=== PATIENT | female | born 1950 | race Caucasian/White ===

== ENCOUNTER → 2018-03-25 | Outpatient (CLI) | payer MEDICARE, OTHER ==
[~2018-03-25] MED LIST: METOPROLOL TARTRATE 25 MG TAB ONE; METOPROLOL TARTRATE INJ 1 MG/ML VIAL ONE; NITROGLYCERIN 0.4 MG SUBL ONE
[2018-03-25 09:57] LABS: BLOOD UREA NITROGEN 16 mg/dL (7-26); BUN/CREATININE RATIO 24 (6-25); CREATININE, SERUM 0.67 mg/dL (0.57-1.11); EST GLOMERULAR FILTRATION RATE > 60 ML/MIN (60-)
--- NOTE | 2018-03-25 14:57 | Diagnostic Imaging Report ---
EXAM: CTA HEART WITH CONTRAST DATE: 03/25/2018 9:12 AM INDICATION: Coronary artery disease. Angina. COMPARISON: None TECHNIQUE: Contrast-enhanced CT of the coronary arteries was obtained with retrospective electrocardiogram gating. Images were reformatted at 0.5 mm intervals and sent to the [employer] workstation for interpretation of both systolic and diastolic phases. Lopressor 50 mg by mouth given twice as well as 5 mg IV given twice. 0.4 mg nitroglycerin. Heart rate during CTA reported as 68. Contrast: 100 mL Omnipaque 350 Total DLP: 1622 mGy*cm Est. Eff. Dose DLP x 0.015 x size factor mSv (CTDIvol has been reviewed and is below limits set by [facility]). Appropriate CT dose reduction techniques were utilized. Study quality: Image quality moderately degraded by motion. In particular, RCA in adequately evaluated. FINDINGS: Coronary Arteries: Coronary artery score disease limited by motion): LAD 223, circumflex 160, RCA 178 for a total of 562. This patient has a right dominant system, with normal origins of the coronary arteries. Left Main coronary artery: No atherosclerotic disease or significant stenosis. Left anterior descending artery: Moderate atherosclerotic changes mid LAD. Degree of narrowing in adequately evaluated. Diagonal branches: Moderate atherosclerotic changes first diagonal branch. Degree of narrowing in adequately evaluated. Left circumflex artery: Moderate atherosclerotic changes proximal circumflex. Degree of narrowing in adequately evaluated. Obtuse marginal branches: Inadequately evaluated. Right coronary artery: Nondiagnostic evaluation. Significant motion artifact all sequences. Mild to moderate proximal/mid atherosclerotic changes, suboptimally evaluated. PDA: No atherosclerotic disease or significant stenosis. Ramus intermedius: Absent Cardiac findings: Pacemaker: None. Artificial valve: None. Intracardiac?closure device: None Ascending Aorta: 34 mm. Pulmonary Trunk: 23 mm. Partially Visualized Mediastinum: Calcified mediastinal/hilar lymph nodes. Partially Visualized Lungs: No acute findings. Other findings: None IMPRESSION: 1. Exam of limited diagnostic utility due to moderate motion artifact. 2. Moderate atherosclerotic changes predominantly in the proximal/mid LAD, first diagonal branch, circumflex coronary artery, and RCA. Coronary calcium score of 562. Nuclear medicine stress test or coronary artery catheterization could be obtained for further evaluation. 3. Evidence of prior granulomatous disease. CT Calcium Score and Agatston Score Risk Group Distribution: 0: Negative Risk 1-10: Minimal Risk 11-100: Mild Risk 101-400: Moderate Risk >400: Extensive Risk Signed by: Dr. Ozzy Cotton MD on 03/25/2018 2:53 PM
== END ==
LOC: CT 09:04
PROVIDERS: ATTEND Internal Medicine Interventional Cardiology
DX: I25.10 Atherosclerotic heart disease of native coronary artery without angina pectoris (principal); I20.9 Angina pectoris, unspecified
CPT/HCPCS: 36415; 75574; 82565; 84520

== ENCOUNTER → 2019-05-26 | Day surgery (SDC) | payer MEDICARE, OTHER ==
[2019-05-21 14:22] LABS: BASOPHILS # (AUTO) 0.1 (0.0-0.1); BASOPHILS % 0.5 % (0.0-1.0); EOSINOPHILS # (AUTO) 0.2 (0.0-0.4); EOSINOPHILS % 1.6 % (0.0-6.0); HEMATOCRIT 45.3 % (34.2-44.1); HEMOGLOBIN 15.6 g/dL (12.0-16.0); LYMPHOCYTES # (AUTO) 2.8 (1.0-3.2); MEAN CORPUSCULAR HEMOGLOBIN 33.8 pg (28-32); MEAN CORPUSCULAR HGB CONC 34.4 g/dL (31-35); MEAN CORPUSCULAR VOLUME 98.1 fL (81-99); MONOCYTES # (AUTO) 0.9 (0.2-0.8); MONOCYTES % 9.6 % (4.4-11.3); NEUTROPHILS # (AUTO) 5.3 (2.1-6.9); NEUTROPHILS % 57.5 % (38.7-80.0); PLATELET COUNT 209 x10e3/uL (140-360); RED BLOOD COUNT 4.62 x10e6/uL (3.6-5.1); RED CELL DISTRIBUTION WIDTH 12.1 % (11.7-14.4)
[2019-05-21 14:39] LABS: BLOOD UREA NITROGEN 14 mg/dL (7-26); BUN/CREATININE RATIO 21 (6-25); CALCIUM 9.9 mg/dL (8.4-10.2); CARBON DIOXIDE 27 mmol/L (22-29); CHLORIDE 101 mmol/L (98-107); CREATININE, SERUM 0.67 mg/dL (0.57-1.11); EST GLOMERULAR FILTRATION RATE > 60 ML/MIN (60-); GLUCOSE 99 mg/dL (74-118); SODIUM 137 mmol/L (136-145)
--- NOTE | 2019-05-21 14:47 | Diagnostic Imaging Report ---
EXAMINATION: CHEST 2 VIEWS INDICATION: Preop. Colonoscopy ^PREOP ^[id number] ^1430 COMPARISON: August 13, 2016 FINDINGS: TUBES and LINES: None. LUNGS: Lungs are well inflated. Lungs are clear. There is no evidence of pneumonia or pulmonary edema. PLEURA: No pleural effusion or pneumothorax. HEART AND MEDIASTINUM: The cardiomediastinal silhouette is unremarkable. BONES AND SOFT TISSUES: No acute osseous lesion. Soft tissues are unremarkable. UPPER ABDOMEN: No free air under the diaphragm. IMPRESSION: No acute thoracic abnormality. Signed by: Dr. Dustin Henderson M.D. on 05/21/2019 2:43 PM
[~2019-05-26] MED LIST changes: +ASPIR 8181 MG PO; +AVAPRO150 MG PO; +CBD OIL SL; +CEFAZOLIN SOD 1 GM VIAL ONE; +FENTANYL CITRATE/PF 100MCG/2 ML INJ ONE; +IBUPROFEN200 MG PO; +KETAMINE HCL INJ 50 MG/ML 10 ML VIAL ONE; +LIDOCAINE HCL 2% LOCAL INJ 5 ML SDV VIAL INJ ONE; -METOPROLOL TARTRATE 25 MG TAB ONE; -METOPROLOL TARTRATE INJ 1 MG/ML VIAL ONE; +MIDAZOLAM HCL 2 MG/2 ML VIAL ONE; -NITROGLYCERIN 0.4 MG SUBL ONE; +PROPOFOL IV EMULSION 10 MG/ML 20 ML VIAL ONE; +TENORMIN50 MG PO
--- OUTSIDE RECORDS SUMMARY | 2019-05-26 07:28 | XMS REPORT | Summary of Care ---
Author Author GALINA Nash, JOE Velez Unknown Address Unknown Phone Unavailable Care Team Providers Care Medicaid Billing Clerk Name Role Phone JOE OMJICA M.D. Unavailable Unavailable GALINA CALIXTO [place], JOE ARRIOLA Unavailable Unavailable Unavailable Unavailable Functional Status Name Dates Details Functional status health issues are not documented Status: Name Dates Details Cognitive status health issues are not documented Status: Problems Name Dates Details Acute pain of right knee (719.46, M25.561) Status: Active Obesity (278.00, E66.9) Status: Active Hypertension (401.9, I10) Status: Active Mitral valve prolapse (424.0, I34.1) Status: Active Acute hip pain, right (719.45, M25.551) Status: Active Contusion of knee, left (924.11, S80.02XA) Status: Active Contusion of hip, right (924.01, S70.01XA) Status: Active Lumbar pain (724.2, M54.5) Status: Active Primary osteoarthritis of left knee (715.16, M17.12) Status: Active Medications Name Dates Details Handicap Parking PERMANENT HANDICAP PLACARD Quantity: 1 GALINA M.DJOE Parada Start : 31-May-2016 Active Avapro 150 MG Oral Tablet * Refills: 0 Active Aleve 220 MG Oral Tablet * Refills: 0 Active Duexis 800-26.6 MG Oral Tablet TAKE 1 TABLE TID * Quantity: 90 Refills: 1 GALINA M.DJOE Parada Start : 05-Jul-2016 Active Ecotrin 325 MG Oral Tablet Delayed Release TAKE 1 TABLET BY MOUTH BID * Quantity: 14 Refills: 0 GALINA M.D.JOE * Start : 18-Sep-2016 Active Ondansetron HCl - 4 MG Oral Tablet TAKE 1 TABLET POQ 6-8 HOURS PRN NAUSEA * Quantity: 25 Refills: 1 GALINA M.D.JOE Start : 23-Sep-2016 Active Oxycodone-Acetaminophen 10-325 MG Oral Tablet TAKE 1 TO 2 TABLETS EVERY 6 HOURS NEEDED FOR PAIN. * Quantity: 60 Refills: 0 JOE MOJICA M.D. * Start : 26-Sep-2016 Active Cyclobenzaprine HCl - 10 MG Oral Tablet 1 tablet TID * Quantity: 60 Refills: 1 JOE MOJICA M.D. * Start : 08-Nov-2016 Active Allergies and Adverse Reactions Name Dates Details Bactrim (Allergy) Status: Active codeine (Allergy) Status: Active Stadol (Allergy) Status: Active Latex All (Allergy) Status: Active Past Medical History Name Dates Details History of bladder infections (V13.02, Z87.440) Status: Resolved History of Panic attack (300.01, F41.0) Status: Resolved Procedures Procedure Dates Details History of Breast Surgery Lumpectomy Completed History of Total Knee Arthroplasty Completed History of Knee Arthroscopy With Medial Meniscus Repair Completed Immunization Name Dates Details Immunizations not documented Family History Name Dates Details Family history of History of heart bypass surgery (V45.81, Z95.1) Status: Active Name Dates Details Family history of hypertension (V17.49, Z82.49) Status: Active Family history of kidney stones (V18.69, Z84.1) Status: Active Name Dates Details Family history of History of heart bypass surgery (V45.81, Z95.1) Status: Active Social History Name Dates Details - Status: Name Dates Details Never smoker Vital Signs Date Test Result Details No Known Vitals to report Results Date Description Value Details [id number] [U] XR KNEE 3 VWS BILATERAL XR KNEE 3 VWS BILATERAL Images acquired, not reported on this accession number. Plan of Care Name Dates Details Planned Observations Planned Goals not documented Interventions Provided Labs/Procedures/Imaging* [U] XR KNEE 3 VWS BILATERAL; Done: 21 Apr 2018 Plan* Patient Education/Instructions: * Patient Education Provided * Reassurance * Physical Activity/ Sports Clearance: Physical Activity: Home exercise program and Patient advised of activity modifications * Patient/Parent to call or return with any abnormal changes * Follow Up: * Please schedule an appointment as needed for any future problems or concerns. * may need MRI right knee Instructions Name Dates Details Instructions not documented Encounters Appointment; JOE MOJICA M.D. Encounter Diagnosis: Problem not documented On: 31-May-2016 13:30 Appointment; JOE MOJICA M.D. Encounter Diagnosis: Problem not documented On: 08-Jul-2016 9:45 Appointment; JOE MOJICA M.D. Encounter Diagnosis: Problem not documented On: 30-Aug-2016 13:30 Appointment; JOE MOJICA M.D. Encounter Diagnosis: Problem not documented On: 17-Sep-2016 8:00 Appointment; JOE MOJICA M.D. Encounter Diagnosis: Problem not documented On: 01-Oct-2016 13:45 Appointment; JOE MOJICA M.D. Encounter Diagnosis: Problem not documented On: 19-Nov-2016 13:00 Appointment; JOE MOJICA M.D. Encounter Diagnosis: Problem not documented On: 21-Apr-2018 13:45
--- OUTSIDE RECORDS SUMMARY | 2019-05-26 07:28 | XMS REPORT ---
Author Author [facility] Address Unknown Phone Unavailable Care Team Providers Care [employer] Developer Name Role Phone Maurilio GROSSMAN Unavailable Unavailable AMBREEN MCKEON Unavailable Unavailable Problems This patient has no known problems. Allergies, Adverse Reactions, Alerts This patient has no known allergies or adverse reactions. Medications This patient has no known medications. Results Test Description Test Time Test Comments Text Results Atomic Results Result Comments CHEST 2 VIEWS 2019-05-21 14:42:00 [place] [id number] Patient Name: STEFANIE CORADO MR #: [id number] : 1950 Age/Sex: 68/F Req #: [id number] Adm Physician: Ordered by: ANA GROSSMAN MD Report #: [id number] Location: OR Room/Bed: Procedure: [id number] DX/CHEST 2 VIEWS Exam Date: 05/21/19 Exam Time: 1430 REPORT STATUS: Signed EXAMINATION: CHEST 2 VIEWS INDICATION: Preop. Colonoscopy PREOP [id number] COMPARISON: August 13, 2016 FINDINGS: TUBES and LINES: None. LUNGS: Lungs are well inflated. Lungs are clear. There is no evidence of pneumonia or pulmonary edema. PLEURA: No pleural effusion or pneumothorax. HEART AND MEDIASTINUM: The cardiomediastinal silhouette is unremarkable. BONES AND SOFT TISSUES: No acute osseous lesion. Soft tissues are unremarkable. UPPER ABDOMEN: No free air under the diaphragm. IMPRESSION: No acute thoracic abnormality. Signed by: Dr. Dustin Henderson M.D. on 05/21/2019 2:43 PM Dictated By: DUSTIN HENDERSON MD, MD [id number] Transcribed By: DANNY on 05/21/191442 COPY TO: ANA GROSSMAN MD CTA CORONARY W or WO CALCIUM 2018-03-25 14:37:00 [place] [id number] Patient Name: STEFANIE CORADO MR #: [id number] : 1950 Age/Sex: 67/F Req #: [id number] Adm Physician: Ordered by: AMBREEN MCKEON MD Report #: [id number] Location: CT Room/Bed: Procedure: [id number] CT/CTA CORONARY W or WO CALCIUM Exam Date: 03/25/18 Exam Time: 1115 REPORT STATUS: Signed EXAM: CTA HEART WITH CONTRAST DATE: 03/25/2018 9:12 AM INDICATION: Coronary artery disease. Angina. COMPARISON: None TECHNIQUE: Contrast-enhanced CT of the coronary arteries was obtained with retrospective electrocardiogram gating. Images were reformatted at 0.5 mm intervals and sent to the [employer] workstation for interpretation of both systolic and diastolic phases. Lopressor 50 mg by mouth given twice as well as 5 mg IV given twice. 0.4 mg nitroglycerin. Heart rate during CTA reported as 68. Contrast: 100 mL Omnipaque 350 Total DLP: 1622 mGy*cm Est. Eff. Dose DLP x 0.015 x size factor mSv (CTDIvol has been reviewed and is below limits set by [facility]). Appropriate CT dose reduction techniques were utilized. Study quality: Image quality moderately de graded by motion. In particular, RCA in adequately evaluated. FINDINGS: Coronary Arteries: Coronary artery score disease limited by motion): LAD 223, circumflex 160, RCA 178 for a total of 562. This patient has a right dominant system, with normal origins of the coronary arteries. Left Main coronary artery: No atherosclerotic disease or significant stenosis. Left anterior descending artery: Moderate atherosclerotic changes mid LAD. Degree of narrowing in adequately evaluated. Diagonal branches: Moderate atherosclerotic changes first diagonal branch. Degree of narrowing in adequately evaluated. Left circumflex artery: Moderate atherosclerotic changes proximal circumflex. Degree of narrowing in adequately evaluated. Obtuse marginal branches: Inadequately evaluated. Right coronary artery: Nondiagnostic evaluation. Significant motion artifact all sequences. Mild to moderate proximal/mid atherosclerotic changes, suboptimally evaluated. PDA: No atherosclerotic disease or significant stenosis. Ramus intermedius: Absent Cardiac findings: Pacemaker: None. Artificial valve: None. Intracardiac?closure device: None Ascending Aorta: 34 mm. Pulmonary Trunk: 23 mm. Partially Visualized Mediastinum: Calcified mediastinal/hilar lymph nodes. Partially Visualized Lungs: No acute findings. Other findings: None IMPRESSION: 1. Exam of limited diagnostic utility due to moderate motion artifact. 2. Moderate atherosclerotic changes predominantly in the proximal/mid LAD, first diagonal branch, circumflex coronary artery, and RCA. Coronary calcium score of 562. Nuclear medicine stress test or coronary artery catheterization could be obtained for further evaluation. 3. Evidence of prior granulomatous disease. CT Calcium Score and Agatston Score Risk Group Distribution: 0: Negative Risk 1-10: Minimal Risk 11-100: Mild Risk 101-400: Moderate Risk >400: Extensive Risk Signed by: Dr. Ozzy Cotton MD on 03/25/2018 2:53 PM Dictated By: OZZY COTTON MD [id number] Transcribed By: DANNY on 03/25/18 5919 COPY TO: AMBREEN MCKEON MD
[2019-05-26 12:50] VITALS: BP 142/88
== END | disposition home or self-care (01) ==
LOC: OR 07:14
PROVIDERS: ATTEND Surgery
DX: K92.1 Melena (principal); D12.0 Benign neoplasm of cecum; D12.5 Benign neoplasm of sigmoid colon; Z01.810 Encounter for preprocedural cardiovascular examination; Z01.812 Encounter for preprocedural laboratory examination; Z01.811 Encounter for preprocedural respiratory examination; Z88.5 Allergy status to narcotic agent; Z88.2 Allergy status to sulfonamides; Z88.8 Allergy status to other drugs, medicaments and biological substances; Z91.040 Latex allergy status; I10 Essential (primary) hypertension; D64.9 Anemia, unspecified; R06.00 Dyspnea, unspecified; K64.5 Perianal venous thrombosis
CPT/HCPCS: 36415; 45385; 71046; 80048; 85025; 88305; 93005; J0690; J2001; J2250; J2704; J3010

== ENCOUNTER → 2025-01-10 | Day surgery (SDC) | payer MEDICARE, OTHER ==
[2025-01-06 14:06] LABS: BASOPHILS # (AUTO) 0.1 (0.0-0.1); BASOPHILS % 1.1 % (0.0-1.0); EOSINOPHILS # (AUTO) 0.3 (0.0-0.4); EOSINOPHILS % 4.7 % (0.0-6.0); HEMATOCRIT 41.5 % (34.2-44.1); LYMPHOCYTES # (AUTO) 2.3 (1.0-3.2); LYMPHOCYTES % 39.8 % (18.0-39.1); MEAN CORPUSCULAR HEMOGLOBIN 33.8 pg (28-32); MEAN CORPUSCULAR HGB CONC 36.1 g/dL (31-35); MEAN CORPUSCULAR VOLUME 93.5 fL (81-99); MONOCYTES # (AUTO) 0.5 (0.2-0.8); MONOCYTES % 8.6 % (4.4-11.3); NEUTROPHILS # (AUTO) 2.6 (2.1-6.9); NEUTROPHILS % 45.4 % (38.7-80.0); PLATELET COUNT 175 x10e3/uL (140-360); RED BLOOD COUNT 4.44 x10e6/uL (3.6-5.1)
[2025-01-06 14:28] LABS: ALBUMIN 4.2 g/dL (3.5-5.0); ALBUMIN/GLOBULIN RATIO 1.7 (0.8-2.0); ANION GAP 16.4 mmol/L (8-16); BILIRUBIN,TOTAL 0.8 mg/dL (0.2-1.2); CALCIUM 9.5 mg/dL (8.4-10.2); CREATININE, SERUM 0.87 mg/dL (0.57-1.11); POTASSIUM 4.4 mmol/L (3.5-5.1); TOTAL PROTEIN 6.7 g/dL (6.5-8.1)
[~2025-01-10] MED LIST changes: -CEFAZOLIN SOD 1 GM VIAL ONE; -FENTANYL CITRATE/PF 100MCG/2 ML INJ ONE; -KETAMINE HCL INJ 50 MG/ML 10 ML VIAL ONE; -MIDAZOLAM HCL 2 MG/2 ML VIAL ONE; +PROMETHAZINE-D473 ML PO; +VIT D3 PO
[2025-01-10] MEDS: LACTATED RINGER'S 1,000 ML ONE (07:30)
[2025-01-10 10:00] VITALS: TEMP 98.3
[2025-01-10 10:30] VITALS: BP 158/85; PULSE 65; RESP 16; O2SAT 98
== END | disposition home or self-care (01) ==
LOC: OR 06:36
PROVIDERS: ATTEND Surgery
DX: K29.50 Unspecified chronic gastritis without bleeding (principal); D12.0 Benign neoplasm of cecum; Z01.810 Encounter for preprocedural cardiovascular examination; Z01.812 Encounter for preprocedural laboratory examination; I10 Essential (primary) hypertension
CPT/HCPCS: 36415 ×2; 43239; 45380; 71046; 80053; 82948; 85025; 88305; 88342; 93005; J2003; J2704; J7121; 45384